=== PATIENT | male | born 1955 | race Caucasian/White ===

== ENCOUNTER 2017-03-11 12:28 | Emergency (ER) | payer OTHER ==
--- NOTE | 2017-03-11 12:33 | UC ---
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 - History of Current Complaint Chief Complaint: UCUpperExtremity Stated Complaint: LEFT THUNB INJ Time Seen by Provider: 03/11/17 12:33 Hx Obtained From: Patient Onset/Duration: Sudden Onset Severity Initially: Moderate Severity Currently: Moderate Pain Scale Used: 0-10 Numeric - 7 - Allergies/Home Medications Allergies/Adverse Reactions: Allergies Allergy/AdvReac Type Severity Reaction Status Date / Time No Known Allergies Allergy Verified 03/11/17 12:33 PMH/Surg Hx/FS Hx/Imm Hx Previously Healthy: Yes - Surgical History Surgical History: Yes Surgery Procedure, Year, and Place: left hip replacement 02/2013 - Social History Alcohol Use: Daily Alcohol Amount: 4-5 beers daily Substance Use Type: None Type: Cigarettes Amount Used/How Often: 1/2 ppd Household Exposure Type: Cigarettes - Immunization History Most Recent Tetanus Shot: less than 5 years ago Review of Systems Constitutional: Negative Skin: Negative Eyes: Negative ENT: Negative Respiratory: Negative Cardiovascular: Negative Gastrointestinal: Negative Genitourinary: Negative Motor: Negative Neurovascular: Negative Musculoskeletal: Other: - right thumb pain/swelling Neurological: Negative Psychological: Negative All Other Systems Reviewed And Are Negative: Yes Physical Exam Triage Information Reviewed: Yes Vital Signs Reviewed: Yes Eye Exam: Normal ENT Exam: Normal Dental Exam: Normal Neck exam: Normal Neck: Positive: 1 Respiratory Exam: Normal Cardiovascular Exam: Normal Abdominal Exam: Normal Musculoskeletal: Positive: Other: - right thumb fx Neurological Exam: Normal Psychological Exam: Normal Skin Exam: Normal Upper Extremity Course/Dx - Differential Dx/Diagnosis Provider Diagnoses: right thumb fx Discharge - Discharge Plan Condition: Stable Disposition: HOME Patient Education Materials: Thumb Fracture (ED) Referrals: Levi Butterfield MD [Medical Doctor] - No Primary Care Phys,NOPCP [Primary Care Provider] -
[2017-03-11 12:39] VITALS: BP 136/82
--- NOTE | 2017-03-11 13:00 | RAD ---
Indication: RIGHT hand first digit pain. Comparison: No relevant prior exams available on the [facility] for comparison. Technique: AP, lateral, and oblique views RIGHT thumb. Report: Transverse nonarticular fracture through the diaphysis of the distal phalanx with one bone width volar displacement and mild foreshortening with cephalocaudal overlap of the proximal and distal moieties of the phalanx. Negative for additional fracture or articular malalignment. 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 Soft tissue swelling greatest distally. IMPRESSION: Nonarticular displaced fracture at the distal phalanx.
== END 2017-03-11 13:11 | disposition home or self-care (01) ==
LOC: UCCORT 12:28
DX: S62.521A Displaced fracture of distal phalanx of right thumb, initial encounter for closed fracture (principal); X58.XXXA Exposure to other specified factors, initial encounter; Y93.9 Activity, unspecified; Y92.9 Unspecified place or not applicable; Y99.9 Unspecified external cause status; Z72.0 Tobacco use; Z72.89 Other problems related to lifestyle
CPT/HCPCS: 99202; G0463